=== PATIENT | female | born 1950 | race Caucasian/White ===

== ENCOUNTER 2017-04-20 13:31 | Outpatient (CLI) | payer MEDICARE, OTHER ==
[~2017-04-20] VITALS: Ht 160 cm; Wt 58.2 kg
[~2017-04-20 13:31] MED LIST: AMBIEN5 MG PO; AMOX TR-K CLV 21 TAB PO; AUGMENTIN 500-11 TA1 PO; CALCIUM CITRATE1 TAB PO; EFFEXOR XR150 MG PO; FLORANEX / LACT1 TAB PO; FLORINEF 0.1 M0.1 MG PO; MIDODRINE HCL5 MG PO; MORPHINE SULFAT15 M4 PO; MULTI-DAY VITAM1 TAB PO; NYSTATIN ORAL SU5 ML PO; PHENERGAN25 M1 PO; PRILOSEC20 MG PO; RESTORIL22.5 MG PO; SYNTHROID50 MCG PO; VITAMIN D31000 UNIT PO; ZOVIRAX800 MG PO
[2017-04-20] MEDS ORDERED: BUPROPION HCL75 MG PO (14:29)
[2017-04-20 14:37] VITALS: BP 109/67; Ht 160 cm; Wt 58.2 kg
== END 2017-04-20 14:44 | disposition home or self-care (01) ==
LOC: D.OPS 13:31
DX: M81.0 Age-related osteoporosis without current pathological fracture (principal)

== ENCOUNTER → 2017-06-14 09:35 | Outpatient (CLI) | payer MEDICARE, OTHER ==
[2017-04-20 14:37] VITALS: BMI 22.7
[~2017-06-14 09:35] MED LIST changes: +BUPROPION HCL75 MG PO
== END | disposition home or self-care (01) ==
LOC: D.RAD 09:35
DX: R10.13 Epigastric pain (principal); R11.2 Nausea with vomiting, unspecified

== ENCOUNTER → 2017-09-12 17:49 | Outpatient (CLI) | payer MEDICARE, OTHER ==
[2017-04-20 14:37] VITALS: BMI 22.7
[~2017-09-12 17:49] MED LIST changes: +ATIVAN0.5 MG PO; +CITRACAL + D E1 EACH PO; +HYDROCODONE-APA1 TAB PO; +K-TAB10 MEQ PO; +KLOR-CON 88 MEQ PO; +REMERON15 MG PO; +REMERON15 MG/UDTA PO
== END | disposition home or self-care (01) ==
LOC: D.LABREF 17:49
DX: R31.9 Hematuria, unspecified (principal)

== ENCOUNTER 2017-10-05 14:00 | Outpatient (CLI) | payer MEDICARE, OTHER ==
[~2017-10-05] VITALS: Ht 160 cm; Wt 53.2 kg
[~2017-10-05 14:00] MED LIST changes: -ATIVAN0.5 MG PO; -HYDROCODONE-APA1 TAB PO; -K-TAB10 MEQ PO; -KLOR-CON 88 MEQ PO; -REMERON15 MG PO; -REMERON15 MG/UDTA PO
[2017-10-05] MEDS ORDERED: ATIVAN0.5 MG PO (14:24)
[2017-10-05] MEDS ORDERED: REMERON15 MG PO (14:24)
[2017-10-05] MEDS ORDERED: K-TAB10 MEQ PO (14:25)
[2017-10-05 14:50] VITALS: BP 106/68; Ht 160 cm; Wt 53.2 kg
[2017-10-06] MEDS ORDERED: REMERON15 MG/UDTA PO (07:02)
[2017-10-06] MEDS ORDERED: KLOR-CON 88 MEQ PO (07:02)
[2017-10-06] MEDS ORDERED: HYDROCODONE-APA1 TAB PO (07:05)
== END 2017-10-05 15:10 ==
LOC: D.OPS 14:00
DX: M81.0 Age-related osteoporosis without current pathological fracture (principal)

== ENCOUNTER 2017-10-06 06:00 | Day surgery (SDC) | payer MEDICARE, OTHER ==
[2017-10-05 15:28] LABS: HEMOGLOBIN 9.6 g/dL (12-16); MCH 33.1 pg (26.0-34.0); MCV 103.4 fL (80.0-100.0); MEAN PLATELET VOLUME 9.9 fL (7.4-10.4); RBC 2.9 10x6/uL (4.00-5.40); RDW 17.2 % (11.5-14.5); WBC 6.9 10x3/uL (4.8-10.8)
[2017-10-05 15:52] LABS: APTT 29.5 SECONDS (22.8-39.4); INR 1.05 (0.85-1.17); PROTIME 13.3 SECONDS (11.6-15.0)
[2017-10-05 16:07] LABS: ALBUMIN 2.1 g/dL (3.4-5.0); ANION GAP 12.1 mmol/L (8-16); BILIRUBIN - TOTAL 0.46 mg/dL (0.2-1.3); CALCIUM 7.4 mg/dL (8.5-10.1); CARBON DIOXIDE 22.6 mmol/L (21.0-32.0); CREATININE - SERUM 1.1 mg/dL (0.6-1.3); POTASSIUM - SERUM 4.7 mmol/L (3.5-5.1); PROTEIN - SERUM 4.7 g/dL (6.4-8.2)
[~2017-10-06] VITALS: Ht 160 cm; Wt 53.1 kg
[~2017-10-06 06:00] MED LIST changes: +ATIVAN0.5 MG PO; +K-TAB10 MEQ PO; +REMERON15 MG PO
[2017-10-06] MEDS ORDERED: REMERON15 MG/UDTA PO (07:02)
[2017-10-06] MEDS ORDERED: KLOR-CON 88 MEQ PO (07:02)
[2017-10-06] MEDS ORDERED: HYDROCODONE-APA1 TAB PO (07:05)
[2017-10-06 07:09] VITALS: Ht 160 cm; Wt 53.1 kg
--- NOTE | 2017-10-06 09:25 | NUR ---
THE PATIENT REQUESTS TO RETURN TO [facility] SO SHE CAN USE THE BATHROOM. BEDPAN OFFERED AND DENIED.
--- NOTE | 2017-10-06 14:13 | OP ---
PATIENT NAME: LUCIANA MICHAEL MEDICAL RECORD: [id number] :48 LOCATION:D.OPS ADMISSION DATE: SURGEON: CHIRAG GUPTA MD DATE OF OPERATION: 10/06/2017 SURGEON: Chirag Gupta MD ANESTHESIA: MAC by Dr. Fitzgerald. PREOPERATIVE DIAGNOSES: Microscopic hematuria, interstitial cystitis. PROCEDURES: Cystoscopy, intravesical Rimso instillation. FINDINGS: Inflammation of the bladder and the trigone and part of the dome. Single ureteral orifices bilaterally. No bladder tumors. BLOOD LOSS: None. CLINICAL HISTORY: This is a 66-year-old female, A0, who has a complaint of pelvic pain, which radiates to the back and ongoing urinary tract infection symptoms. There have not been any positive urine cultures. She also has suprapubic pain for the past month. She was given Bactrim for a presumptive UTI, but she developed an allergy to it and had to stop. She has to void every 2-3 hours in the day and she has nocturia times 1. There is no dysuria. Urinalysis showed microhematuria. She had a history of glomerulonephritis in her 20s. Serum creatinine is normal at 0.84. She had a CT scan of the abdomen and pelvis at [facility] 1 month ago and it was normal. She comes today for cystoscopy and her symptoms are suggestive of interstitial cystitis. If inflammation of the bladder is found, we will treat her with intravesical Rimso. 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 DESCRIPTION OF PROCEDURE: The patient was given IV sedation. She was placed in the dorsal lithotomy position and prepped and draped. A 17-Kosovan cystoscope was used with 30-degree lens for visualization. Findings are as outlined above. No tumors were seen, but there is bladder inflammation, especially in the trigone. We then drained the bladder through the cystoscope sheath. A 10-Kosovan red rubber catheter was inserted into the bladder and the Rimso solution was injected into the bladder through the catheter. Once the solution was in the bladder, the catheter was removed, leaving the solution in the bladder. The patient will hold the solution for at least 15 minutes and then void it out. I will see her in followup next week to give her the second treatment of Rimso. TRANSINT:[id number] Voice Confirmation ID: [id number] DOCUMENT ID: [id number] CHIRAG GUPTA MD at 1413 CC: [id number] DICTATION DATE: 10/06/17900 RESIDENT SERVICES COORDINATOR: 10/06/17 1301 [facility] [place] 10/06/17 [place] [id number] [place] [id number]
== END 2017-10-06 10:50 | disposition home or self-care (01) ==
LOC: D.OPS 06:00 → D.PAN 08:15 → D.OPS 10:50
PROVIDERS: Anesthesiology
DX: R31.29 Other microscopic hematuria (principal); N30.11 Interstitial cystitis (chronic) with hematuria; K21.9 Gastro-esophageal reflux disease without esophagitis; E03.9 Hypothyroidism, unspecified; Z01.812 Encounter for preprocedural laboratory examination

== ENCOUNTER → 2017-10-13 13:37 | Outpatient (CLI) | payer MEDICARE, OTHER ==
[2017-10-06 07:09] VITALS: BMI 20.7
[~2017-10-13 13:37] MED LIST changes: +HYDROCODONE-APA1 TAB PO; +KLOR-CON 88 MEQ PO; +REMERON15 MG/UDTA PO
== END | disposition home or self-care (01) ==
LOC: D.LABREF 13:37
DX: N39.0 Urinary tract infection, site not specified (principal)

== ENCOUNTER → 2017-12-29 13:10 | Outpatient (CLI) | payer MEDICARE, OTHER ==
[2017-10-06 07:09] VITALS: BMI 20.7
== END | disposition home or self-care (01) ==
LOC: D.CT 13:10
DX: R63.4 Abnormal weight loss (principal); R10.9 Unspecified abdominal pain; R11.0 Nausea; R19.7 Diarrhea, unspecified

== ENCOUNTER 2018-02-15 19:05 | Emergency (ER) | payer MEDICARE, OTHER ==
[2017-10-06 07:09] VITALS: BMI 20.7
[2018-02-15 20:08] LABS: BASOPHILS 0.4 % (0-2); EOSINOPHILS 0.5 % (0-7); HEMATOCRIT 36.4 % (36.0-48.0); HEMOGLOBIN 11.7 g/dL (12-16); IMMATURE GRANULOCYTES 0.3 % (0-5); LYMPHOCYTES 40.4 % (15-50); MCH 31.6 pg (26.0-34.0); MCHC 32.1 g/dL (31.0-37.0); MCV 98.4 fL (80.0-100.0); MEAN PLATELET VOLUME 10.4 fL (7.4-10.4); MONOCYTES 11.1 % (2-11); NEUTROPHILS 47.3 % (40-80); RDW 16.6 % (11.5-14.5); WBC 7.7 10x3/uL (4.8-10.8)
[2018-02-15 20:12] LABS: PLATELET COUNT 321 10x3/uL (130-400)
[2018-02-15 20:29] LABS: ALBUMIN 2.5 g/dL (3.4-5.0); ANION GAP 16.1 mmol/L (8-16); BILIRUBIN - TOTAL 0.81 mg/dL (0.2-1.3); CALCIUM 8.4 mg/dL (8.5-10.1); CARBON DIOXIDE 20.4 mmol/L (21.0-32.0); CREATININE - SERUM 1.6 mg/dL (0.6-1.3); POTASSIUM - SERUM 4.5 mmol/L (3.5-5.1); PROTEIN - SERUM 5.7 g/dL (6.4-8.2)
[2018-02-15 20:34] LABS: APPEARANCE CLEAR (CLEAR); BILIRUBIN NEGATIVE (NEGATIVE); COLOR YELLOW (YELLOW); GLUCOSE NEGATIVE (NEGATIVE); KETONE NEGATIVE (NEGATIVE); NITRITE NEGATIVE (NEGATIVE); PROTEIN NEGATIVE (NEGATIVE); UROBILINOGEN NORMAL (NORMAL)
== END 2018-02-16 01:35 | disposition home or self-care (01) ==
LOC: D.ER 19:05
PROVIDERS: Emergency Medicine
DX: R11.2 Nausea with vomiting, unspecified (principal); R19.7 Diarrhea, unspecified; F22 Delusional disorders; N28.9 Disorder of kidney and ureter, unspecified; E86.0 Dehydration

== ENCOUNTER 2018-04-23 16:13 | Inpatient (IN) | payer MEDICARE, OTHER ==
[~2018-04-23] VITALS: Ht 160 cm; Wt 54.4 kg
[2018-04-23 17:43] LABS: ALBUMIN 2.1 g/dL (3.4-5.0); ANION GAP 12.1 mmol/L (8-16); BILIRUBIN - TOTAL 0.24 mg/dL (0.2-1.3); CALCIUM 7.2 mg/dL (8.5-10.1); CARBON DIOXIDE 23.2 mmol/L (21.0-32.0); CREATININE - SERUM 1.1 mg/dL (0.6-1.3); POTASSIUM - SERUM 4.3 mmol/L (3.5-5.1); PROTEIN - SERUM 5.1 g/dL (6.4-8.2)
[2018-04-23 17:46] LABS: BASOPHILS 0.4 % (0-2); EOSINOPHILS 1.9 % (0-7); HEMATOCRIT 34.2 % (36.0-48.0); HEMOGLOBIN 10.9 g/dL (12-16); IMMATURE GRANULOCYTES 0.2 % (0-5); LYMPHOCYTES 24.3 % (15-50); MCH 31.5 pg (26.0-34.0); MCHC 31.9 g/dL (31.0-37.0); MCV 98.8 fL (80.0-100.0); MEAN PLATELET VOLUME 10.6 fL (7.4-10.4); MONOCYTES 12.7 % (2-11); NEUTROPHILS 60.5 % (40-80); RBC 3.46 10x6/uL (4.00-5.40); RDW 15.3 % (11.5-14.5); WBC 9.1 10x3/uL (4.8-10.8)
[2018-04-23 17:49] LABS: PLATELET COUNT 209 10x3/uL (130-400)
[2018-04-23 19:06] VITALS: BP 112/88
[2018-04-23 20:26] VITALS: BP 162/74
[2018-04-23 22:32] VITALS: BP 177/79; BMI 21.3
[2018-04-24 08:42] VITALS: BP 139/65
[2018-04-24 12:51] VITALS: BP 124/58
[2018-04-24 15:14] VITALS: BP 149/67
[2018-04-24 18:19] LABS: APPEARANCE CLEAR (CLEAR); BILIRUBIN NEGATIVE (NEGATIVE); COLOR YELLOW (YELLOW); GLUCOSE NEGATIVE (NEGATIVE); KETONE NEGATIVE (NEGATIVE); NITRITE NEGATIVE (NEGATIVE); PROTEIN NEGATIVE (NEGATIVE); SPECIFIC GRAVITY 1.015 (1.005-1.020); UROBILINOGEN NORMAL (NORMAL)
[2018-04-24 21:25] LABS: % SATURATION 9 % (15-55); IRON 18 ug/dl (35-150); TOTAL IRON BIND CAPACITY 189 ug/dl (260-445); UNSAT IRON BIND CAPACITY 171 ug/dl (150-375)
[2018-04-25 00:33] VITALS: BP 153/77
[2018-04-25 08:20] VITALS: BP 143/71
[2018-04-25 11:03] VITALS: Ht 160 cm; Wt 54.4 kg
[2018-04-25] MEDS ORDERED: XARELTO15 MG PO (11:41)
[2018-04-25] MEDS ORDERED: FLAGYL500 MG PO (12:18)
[2018-04-25 13:31] VITALS: BP 132/63
[2018-04-26 08:17] LABS: FOLATE (FOLIC ACID) - SERUM >20.0 ng/mL (>3.0)
== END 2018-04-25 15:48 | disposition home or self-care (01) | DRG 299 ==
LOC: D.ER 16:13 → D.EDHOLD 18:36 → D.LD 18:36 → OBSVTIME 18:37 → D.LD 21:53 → D.MS 04-24 20:41 → D.LD 04-24 20:41 → D.MS 04-25 15:48
PROVIDERS: Family Medicine; Internal Medicine Nephrology
DX: I82.412 Acute embolism and thrombosis of left femoral vein (principal); I26.99 Other pulmonary embolism without acute cor pulmonale; I82.432 Acute embolism and thrombosis of left popliteal vein; I82.442 Acute embolism and thrombosis of left tibial vein; A04.72 Enterocolitis due to Clostridium difficile, not specified as recurrent

== ENCOUNTER → 2018-05-16 16:07 | Outpatient (CLI) | payer MEDICARE, OTHER ==
[2018-04-25 11:03] VITALS: BMI 21.2
[~2018-05-16 16:07] MED LIST changes: +FLAGYL500 MG PO; +XARELTO15 MG PO
== END | disposition home or self-care (01) ==
LOC: D.LAB 10:15
DX: Z86.19 Personal history of other infectious and parasitic diseases (principal); R19.7 Diarrhea, unspecified